=== PATIENT | male | born 1980 | race Caucasian/White ===

== ENCOUNTER 2016-10-16 19:19 | Emergency (ER) | payer BC ==
[~2016-10-16] VITALS: Ht 177.8 cm; Wt 90.7 kg
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
--- OUTSIDE RECORDS SUMMARY | 2016-10-16 19:23 | XMS REPORT | Referral Summary ---
Author Author [facility] Organization [facility] Address Unknown Phone Unavailable Care Team Providers Care Overedge Sewer Name Role Phone Kevin Caceres Primary Care Physician [phone] Encounter [facility] Date(s): 01/18/15 - 01/18/[address] [facility] [address], [place] [address] Final: ANAL OR RECTAL PAIN Final: ABDOMINAL PAIN, UNSPECIFIED SITE Final: OTHER SYMPTOMS INVOLVING DIGESTIVE SYSTEM Discharge Disposition: Without Being Seen Attending Physician: Compa Ospina MD Vital Signs Most recent to 1 oldest [Reference Range]: Temperature Oral 37 degC [35.8-37.3 degC] (01/18/15 12:37 AM) Peripheral Pulse 72 bpm Rate [60-100 bpm] (01/18/15 12:37 AM) Respiratory Rate 16 br/min [14-20 br/min] (01/18/15 12:37 AM) Blood Pressure 143/83 mmHg [90-140/60-90 mmHg] *HI* (01/18/15 12:37 AM) SpO2 97 % (01/18/15 12:37 AM) Problem List Condition Effective Dates Status [...] Active penicillin Unknown Unknown Active uNspecfied Medications [place] 5 mg-325 mg oral tablet 2 tabs, [...]
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
--- OUTSIDE RECORDS SUMMARY | 2016-10-16 19:23 | XMS REPORT ---
Demographics Preferred Language Unknown Marital Status Unknown Gnosticism Affiliation Unknown Race White Ethnic Group Not or Author Tyson Franco Organization [employer] Address Unknown Phone Unavailable Care Team Providers Care Applications Analyst Name Role Phone Tyson Caceres CP Unavailable Allergies No Known Allergies Problems No Known Problems Medications No Known Medications Results No Known Results Summary Purpose [employer] Submission
--- OUTSIDE RECORDS SUMMARY | 2016-10-16 19:23 | XMS REPORT ---
Author Author Tyson Caceres Organization [employer] Address Unknown Phone Unavailable Care Team Providers Care Pumper Gager Apprentice Name Role Phone Tyson Caceres CP Unavailable Allergies, Adverse Reactions, Alerts Substance Reaction Event Type penicillin Info Not Available Drug Allergy Problems Problem Type Condition Code Onset Dates Condition Status Assessment Hemorrhoids NOS 455.6 Active Assessment Kidney stone 592.0 Active Assessment Cholelithiasis NOS 574.20 Active Assessment Abdominal pain, epigastric 789.06 Active Assessment Tobacco use disorder 305.1 Active Assessment Screening Lipids V77.91 Active Medications Medication Code System Code Instructions Start Date End Date Status Dosage Chantix Maintenance NDC 82531 1 mg orally BID January 19, 2015 1 tablet Chantix NDC 05833 0.5 mg orally 2 times a day January 19, 2015 1 tab(s) Procedures Procedure Coding System Code Date Office New Level 3 CPT-4 42933 January 19, 2015 Lipase CPT-4 39216 January 19, 2015 Comp Metabolic Panel CPT-4 78677 January 19, 2015 Amylase CPT-4 96086 January 19, 2015 T4 Free CPT-4 90185 January 19, 2015 Microalbumin Urine CPT-4 66735 January 19, 2015 TSH CPT-4 62972 January 19, 2015 Urinalysis WO Micro CPT-4 03985 January 19, 2015 Lipid Panel CPT-4 25098 January 19, 2015 Creatine Urine CPT-4 27938 January 19, 2015 CBC with Differential WBC CPT-4 34225 January 19, 2015 Vital Signs Date/Time: January 19, 2015 BMI 28.98 Index Height 70 in Weight 202.0 lbs Blood Pressure Systolic 122 mm Hg Cardiac Monitoring Heart Rate 72 /min Respiratory Rate 16 /min Temperature 98.1 F Blood Pressure Diastolic 75 mm Hg Results No Known Results Summary Purpose [employer] Submission
--- OUTSIDE RECORDS SUMMARY | 2016-10-16 19:23 | XMS REPORT | Referral Summary ---
Author Author [facility] Organization [facility] Address Unknown Phone Unavailable Care Team Providers Care Pressure Tester Name Role Phone Kevin Caceres Primary Care Physician [phone] Encounter VC Date(s): 10/23/15 - 10/23/15 [facility] [address], [place] [address] Discharge Disposition: Attending Physician: Armando Cannon MD Admitting Physician: Armando Cannon MD Vital Signs Most recent to 1 oldest [Reference Range]: Temperature Oral 36.8 degC [35.8-37.3 degC] (10/23/15 3:40 AM) Peripheral Pulse 70 bpm Rate [60-100 bpm] (10/23/15 3:40 AM) Respiratory Rate 18 br/min [14-20 br/min] (10/23/15 3:40 AM) Blood Pressure 161/102 mmHg [90-140/60-90 mmHg] *HI* (10/23/15 3:40 AM) SpO2 98 % (10/23/15 3:40 AM) Problem List Condition Effective Dates Status [...] Active penicillin Unknown Unknown Active uNspecfied Medications [place] 5 mg-325 mg oral tablet 2 tabs, [...]
--- OUTSIDE RECORDS SUMMARY | 2016-10-16 19:23 | XMS REPORT | Referral Summary ---
Author Author [facility] Organization [facility] Address Unknown Phone Unavailable Care Team Providers Care Poultry Pinner Name Role Phone Kevin Caceres Primary Care Physician [phone] Encounter VC Date(s): 04/05/16 - 04/05/16 [facility] [place] [address] Discharge Diagnosis: Left shoulder pain Discharge Disposition: 01-Home or Self Care Attending Physician: Humphrey Ramirez MD Admitting Physician: Humphrey Ramirez MD Vital Signs Most recent to 1 oldest [Reference Range]: Temperature Tympanic 36.9 degC [36.6-38.1 degC] (04/05/16 2:10 PM) Peripheral Pulse 80 bpm Rate [60-100 bpm] (04/05/16 2:10 PM) Blood Pressure 124/78 mmHg [90-140/60-90 mmHg] (04/05/16 2:10 PM) Problem List Condition Effective Dates Status Health [...] (hives) Active penicillin Unknown Unknown Active uNspecfied shellfish1 Active 1SHELLFISH Medications EpiPen 2-Saeed 0.3 mg injectable kit 0.3 mg, IntraMuscular, Once, # 2 syringes, 0 Refill(s) Start Date: 02/04/16 Status: Ordered naproxen 500 mg oral tablet 500 mg 1 tabs, Oral, BID, # 60 tabs, 0 Refill(s), Pharmacy: [id number], 1 tabs Oral BID Start Date: 04/05/16 Status: Ordered Results No data available for [...] Number of years: 18 Assessment and Plan Extracted from: Title: Office Visit Note Author: Humphrey Ramirez MD Date: 04/05/16 Assessment/Plan 1.Left shoulder pain X-ray appears normal. I think he has a rotator cuff strain. I've recommendedrestrictions including no use of the left arm above 90and no lifting over 20 pounds. Recheck in 2 weeks. We'll also startnaproxen 500 mg twice daily regularly for the next 2 weeks. He's take this with food. If symptoms worsen or further problems develop he'll let us now again we'll recheck him in 2 weeks. Ordered: Office Visit Level 3 Est 43308 XR Shoulder Complete Left
--- OUTSIDE RECORDS SUMMARY | 2016-10-16 19:23 | XMS REPORT | Referral Summary ---
Author Author [facility] Organization [facility] Address Unknown Phone Unavailable Care Team Providers Care Vice President [employer] Name Role Phone Kevin Caceres Primary Care Physician [phone] Encounter VC Date(s): 01/29/15 - 01/29/15 [facility] [address] [place], [place] [address] Final: ABDOMINAL PAIN, LEFT UPPER QUADRANT Final: Other acute postoperative pain Final: OTHER ACQUIRED ABSENCE OF ORGAN Final: TOBACCO USE DISORDER Discharge Diagnosis: Post-operative pain Discharge Diagnosis: Post-op pain Discharge Diagnosis: Acute abdominal pain Discharge Diagnosis: Abdominal pain Discharge Disposition: -Home or Self Care Attending Physician: Humphrey Yeung MD Admitting Physician: Humphrey Yeung MD Vital Signs Most recent to 1 oldest [Reference Range]: Temperature Oral 37.0 degC [35.8-37.3 degC] (01/29/15 2:45 AM) Peripheral Pulse 72 bpm Rate [60-100 bpm] (01/29/15 3:20 AM) Heart Rate Monitored 60 bpm [60-100 bpm] (01/29/15 6:25 AM) Respiratory Rate 16 br/min [14-20 br/min] (01/29/15 6:25 AM) Blood Pressure 140/100 mmHg [90-140/60-90 mmHg] (01/29/15 6:25 AM) Mean Arterial 104 mmHg Pressure, Cuff (01/29/15 5:59 AM) SpO2 95 % (01/29/15 6:25 AM) Problem List Condition Effective Dates Status [...] Active penicillin Unknown Unknown Active uNspecfied Medications [place] 5 mg-325 mg oral tablet 2 tabs, Oral, q4hr, Pain, 0 Refill(s) Start Date: 01/28/15 Status: Ordered Zofran 4 mg oral tablet 4 mg 1 tabs, Oral, q6hr, Nausea or Vomiting, 0 Refill(s) Start Date: 01/28/15 Status: Ordered Results Hematology Most recent to 1 oldest [Reference Range]: WBC [4.8-10.8 13.6 10*3/uL 10*3/uL] *HI* (01/29/15 3:43 AM) RBC [4.60-6.20 5.17 10*6/uL 10*6/uL] (01/29/15 3:43 AM) Hgb [14.0-18.0 15.3 gm/dL gm/dL] (01/29/15 3:43 AM) Hct [42.0-52.0 %] 43.4 % (01/29/15 3:43 AM) MCV [82.0-99.0 fL] 83.9 fL (01/29/15 3:43 AM) MCH [27.0-32.0 pg] 29.6 pg (01/29/15 3:43 AM) MCHC [32.0-36.0 35.3 gm/dL gm/dL] (01/29/15 3:43 AM) RDW [11.5-14.5 %] 13.3 % (01/29/15 3:43 AM) Platelet [150-400 272 10*3/uL 10*3/uL] (01/29/15 3:43 AM) MPV [9.4-12.3 fL] 10.8 fL (01/29/15 3:43 AM) Immature 0.1 % Granulocytes (01/29/15 3:43 AM) [0.0-1.0 %] Neutrophils [51-75 86 % %] *HI* (01/29/15 3:43 AM) Lymphocytes [20-46 8 % %] *LOW* (01/29/15 3:43 AM) Monocytes [4-11 %] 5 % (01/29/15 3:43 AM) Eosinophils [0-4 %] 0 % (01/29/15 3:43 AM) Basophils [0-2 %] 0 % (01/29/15 3:43 AM) Neutro Absolute 11.76 10*3 [1.90-7.00 10*3] *HI* (01/29/15 3:43 AM) Lymph Absolute 1.14 10*3 [0.80-3.30 10*3] (01/29/15 3:43 AM) [place] Absolute 0.70 10*3 [0.30-1.00 10*3] (01/29/15 3:43 AM) Eos Absolute 0.01 10*3 [0.00-0.50 10*3] (01/29/15 3:43 AM) Baso Absolute 0.01 10*3 [0.00-0.20 10*3] (01/29/15 3:43 AM) Chemistry Most recent to 1 oldest [Reference Range]: Sodium Lvl [136-144 138 mEq/L mEq/L] (01/29/15 3:43 AM) Potassium Lvl 3.8 mEq/L [3.6-5.1 mEq/L] (01/29/15 3:43 AM) Chloride [99-109 104 mEq/L mEq/L] (01/29/15 3:43 AM) CO2 [22-32 mEq/L] 23 mEq/L (01/29/15 3:43 AM) AGAP [3-20] 11 (01/29/15 3:43 AM) BUN [4-20 mg/dL] 9 mg/dL (01/29/15 3:43 AM) Glucose Lvl [70-100 137 mg/dL mg/dL] *HI* (01/29/15 3:43 AM) Creatinine Lvl 0.88 mg/dL [0.64-1.27 mg/dL] (01/29/15 3:43 AM) eGFR [>60] >60 1 (01/29/15 3:43 AM) Calcium Lvl 9.3 mg/dL [8.6-10.0 mg/dL] (01/29/15 3:43 AM) Albumin Lvl [3.5-4.8 3.8 gm/dL gm/dL] (01/29/15 3:43 AM) Total Protein 6.6 gm/dL [6.1-7.9 gm/dL] (01/29/15 3:43 AM) Globulin [1.9-4.3 2.8 gm/dL gm/dL] (01/29/15 3:43 AM) ALT [17-63 U/L] 36 U/L (01/29/15 3:43 AM) AST [15-41 U/L] 27 U/L (01/29/15 3:43 AM) Alk Phos [26-104 72 U/L U/L] (01/29/15 3:43 AM) Bili Total [0.2-1.2 0.6 mg/dL 2 mg/dL] (01/29/15 3:43 AM) Lipase Lvl [8-48 20 U/L U/L] (01/29/15 3:43 AM) Creatinine Venous 0.9 mg/dL [0.7-1.2 mg/dL] (01/29/15 4:00 AM) 1Result Comment: Multiply eGFR results by 1.21 for race. 2Result Comment: Naproxen, specifically the metabolite O-desmethylnaproxen, may cause spurious elevation in Total Bilirubin levels. Urinalysis Most recent to 1 oldest [Reference Range]: UA Color Lt Yellow (01/29/15 3:44 AM) UA Appear Clear (01/29/15 3:44 AM) UA pH [5.0-8.0] 7.0 (01/29/15 3:44 AM) UA Leuk Est Negative [Negative] (01/29/15 3:44 AM) UA Nitrite Negative [Negative] (01/29/15 3:44 AM) UA Protein Negative [Negative] (01/29/15 3:44 AM) UA Glucose Negative [Negative] (01/29/15 3:44 AM) UA Ketones Negative [Negative] (01/29/15 3:44 AM) UA Urobilinogen Negative [<1.0] (01/29/15 3:44 AM) UA Bili [Negative] Negative (01/29/15 3:44 AM) UA Blood [Negative] Negative (01/29/15 3:44 AM) UA Spec Grav 1.008 [1.003-1.030] (01/29/15 3:44 AM) Type Clean Catch (01/29/15 3:44 AM) Immunizations Vaccine Date Refusal Reason influenza virus [...]
--- OUTSIDE RECORDS SUMMARY | 2016-10-16 19:23 | XMS REPORT | Referral Summary ---
Author Author [facility] Organization [facility] Address Unknown Phone Unavailable Care Team Providers Care Senior Clinical Data Analyst Name Role Phone Kevin Caceres Primary Care Physician [phone] Encounter VC [facility] [id number] Date(s): 02/04/16 - 02/04/16 [facility] [address], [place] [id number] [place] [address] Discharge Diagnosis: Insect sting allergy, current reaction Discharge Disposition: 01-Home or Self Care Attending Physician: Chad Lamas DO Admitting Physician: Chad Lamas DO Vital Signs Most recent to 1 oldest [Reference Range]: Temperature Oral 37.1 degC [35.8-37.3 degC] (02/04/16 11:58 AM) Peripheral Pulse 91 bpm Rate [60-100 bpm] (02/04/16 11:58 AM) Heart Rate Monitored 66 bpm [60-100 bpm] (02/04/16 1:00 PM) Respiratory Rate 12 br/min [14-20 br/min] *LOW* (02/04/16 11:58 AM) Blood Pressure 111/63 mmHg [90-140/60-90 mmHg] (02/04/16 1:00 PM) Mean Arterial 75 mmHg Pressure, Cuff (02/04/16 1:00 PM) SpO2 95 % (02/04/16 1:30 PM) Problem List Condition Effective Dates Status [...] Active penicillin Unknown Unknown Active uNspecfied Medications EpiPen 2-Saeed 0.3 mg injectable kit 0.3 mg, IntraMuscular, Once, # 2 syringes, 0 Refill(s) Start Date: 02/04/16 Status: Ordered [place] 5 mg-325 mg oral tablet 2 tabs, Oral, q4hr, Pain, 0 Refill(s) Start Date: 01/28/15 Status: Ordered predniSONE 50 mg oral tablet 50 mg 1 tabs, Oral, Daily, X 4 days, # 4 tabs, 0 Refill(s) Start Date: 02/04/16 Stop Date: 02/08/16 Status: Ordered Zithromax Z-Saeed 250 mg oral tablet 1 packets, Oral, Once, as directed on package labeling, # 6 tabs, 0 Refill(s) Start Date: 01/30/16 Status: Ordered Zofran 4 mg oral tablet [...]
--- OUTSIDE RECORDS SUMMARY | 2016-10-16 19:23 | XMS REPORT | Referral Summary ---
Author Author [facility] Organization [facility] Address Unknown Phone Unavailable Care Team Providers Care Mid Level Practitioner Name Role Phone Kevin Caceres Primary Care Physician [phone] Encounter VC Date(s): 01/24/15 - 01/24/15 [facility] [address] [place] [address] NT Final: ABDOMINAL PAIN, RIGHT UPPER QUADRANT Discharge Disposition: 01-Home or Self Care Attending Physician: Ace Nelson MD Vital Signs No data available for this section Problem List Condition Effective Dates Status Health [...] Active penicillin Unknown Unknown Active uNspecfied Medications [place] 5 mg-325 mg oral tablet 2 tabs, [...]
--- OUTSIDE RECORDS SUMMARY | 2016-10-16 19:23 | XMS REPORT | Referral Summary ---
Author Author [facility] Organization [facility] Address Unknown Phone Unavailable Care Team Providers Care Airframe And Powerplant Mechanic Name Role Phone No PCP, Pt States Primary Care Physician [phone] Encounter VC Date(s): 01/30/16 - 01/30/16 [facility] [address], [place] [id number] [place] [address] Discharge Diagnosis: Weakness Discharge Diagnosis: Malaise Discharge Diagnosis: Congested Discharge Diagnosis: Cough Discharge Diagnosis: PNA (pneumonia) Discharge Disposition: 01-Home or Self Care Attending Physician: Aruna Boyer MD Admitting Physician: Aruna Boyer MD Vital Signs Most recent to 1 oldest [Reference Range]: Temperature Oral 37.1 degC [35.8-37.3 degC] (01/30/16 1:41 AM) Peripheral Pulse 62 bpm Rate [60-100 bpm] (01/30/16 5:58 AM) Heart Rate Monitored 62 bpm [60-100 bpm] (01/30/16 5:30 AM) Respiratory Rate 16 br/min [14-20 br/min] (01/30/16 5:58 AM) Blood Pressure 123/83 mmHg [90-140/60-90 mmHg] (01/30/16 5:58 AM) Mean Arterial 98 mmHg Pressure, Cuff (01/30/16 5:30 AM) SpO2 100 % (01/30/16 5:58 AM) Problem List Condition Effective Dates Status [...] Active penicillin Unknown Unknown Active uNspecfied Medications [place] 5 mg-325 mg oral tablet 2 tabs, Oral, q4hr, Pain, 0 Refill(s) Start Date: 01/28/15 Status: Ordered Tussionex PennKinetic 10 mg-8 mg/5 mL oral suspension, extended release 5 mL, Oral, q12hr, as needed for cough, X 3 days, # 30 mL, 0 Refill(s) Start Date: 01/30/16 Stop Date: 02/02/16 Status: Ordered Zithromax Z-Saeed 250 mg oral tablet 1 packets, Oral, Once, as directed on package labeling, # 6 tabs, 0 Refill(s) Start Date: 01/30/16 Status: Ordered Zofran 4 mg oral tablet 4 mg 1 tabs, Oral, q6hr, Nausea or Vomiting, 0 Refill(s) Start Date: 01/28/15 Status: Ordered Results Hematology Most recent to 1 oldest [Reference Range]: WBC [4.8-10.8 11.9 10*3/uL 10*3/uL] *HI* (01/30/16 2:18 AM) RBC [4.60-6.20] 5.03 (01/30/16 2:18 AM) Hgb [14.0-18.0 15.5 gm/dL gm/dL] (01/30/16 2:18 AM) Hct [42.0-52.0 %] 43.8 % (01/30/16 2:18 AM) MCV [82.0-99.0 fL] 87.1 fL (01/30/16 2:18 AM) MCH [27.0-32.0 pg] 30.8 pg (01/30/16 2:18 AM) MCHC [32.0-36.0 35.4 gm/dL gm/dL] (01/30/16 2:18 AM) RDW [11.5-14.5 %] 14.1 % (01/30/16 2:18 AM) Platelet [150-400 270 10*3/uL 10*3/uL] (01/30/16 2:18 AM) MPV [9.4-12.3 fL] 10.6 fL (01/30/16 2:18 AM) Immature 0.4 % Granulocytes (01/30/16 2:18 AM) [0.0-1.0 %] Neutrophils [51-75 70 % %] (01/30/16 2:18 AM) Lymphocytes [20-46 23 % %] (01/30/16 2:18 AM) Monocytes [4-11 %] 4 % (01/30/16 2:18 AM) Eosinophils [0-4 %] 3 % (01/30/16:18 AM) Basophils [0-2 %] 0 % (01/30/16 2:18 AM) Neutro Absolute 8.28 10*3 [1.90-7.00 10*3] *HI* (01/30/16 2:18 AM) Lymph Absolute 2.71 10*3 [0.80-3.30 10*3] (01/30/16 2:18 AM) [place] Absolute 0.52 10*3 [0.30-1.00 10*3] (01/30/16 2:18 AM) Eos Absolute 0.31 10*3 [0.00-0.50 10*3] (01/30/16 2:18 AM) Baso Absolute 0.04 10*3 [0.00-0.20 10*3] (01/30/16 2:18 AM) Nucleated RBC 0.0 /100 WBC Automated [0 /100 (01/30/16 2:18 AM) WBC] Coagulation Most recent to 1 oldest [Reference Range]: D-Dimer [0-600 1186 ng{FEU}/mL 1 ng{FEU}/mL] *HI* (01/30/16 2:18 AM) 1Result Comment: A D Dimer result of <500 ng/mL FEU has a negative predictive value of approximately 100% for the exclusion of DVT and acute PE. Chemistry Most recent to 1 oldest [Reference Range]: Sodium Lvl [136-144 136 mEq/L mEq/L] (01/30/16 2:18 AM) Potassium Lvl 3.8 mEq/L 1 [3.6-5.1 mEq/L] (01/30/16 2:18 AM) Chloride [99-109 105 mEq/L mEq/L] (01/30/16:18 AM) CO2 [22-32 mEq/L] 24 mEq/L (01/30/16 2:18 AM) AGAP [3-20] 7 (01/30/16:18 AM) BUN [4-20 mg/dL] 11 mg/dL (01/30/16:18 AM) Glucose Lvl [70-100 128 mg/dL mg/dL] *HI* (01/30/16 2:18 AM) Creatinine Lvl 0.90 mg/dL [0.64-1.27 mg/dL] (01/30/16:18 AM) eGFR [>60] >60 2 (01/30/16 2:18 AM) Calcium Lvl 8.6 mg/dL [8.6-10.0 mg/dL] (01/30/16:18 AM) Albumin Lvl [3.5-4.8 3.5 gm/dL gm/dL] (01/30/16 2:18 AM) Total Protein 6.1 gm/dL [6.1-7.9 gm/dL] (01/30/16:18 AM) Globulin [1.9-4.3 2.6 gm/dL gm/dL] (01/30/16 2:18 AM) ALT [17-63 U/L] 34 U/L (01/30/16 2:18 AM) AST [15-41 U/L] 32 U/L (01/30/16 2:18 AM) Alk Phos [26-104 95 U/L U/L] (01/30/16 2:18 AM) Bili Total [0.2-1.2 0.4 mg/dL 3 mg/dL] (01/30/16:18 AM) BNP [0-99 pg/mL] 61 pg/mL (01/30/16 2:18 AM) 1Result Comment: Hemolyzed specimen. The following tests may be affected: ALT, AST, Ammonia, Iron, Potassium, LDH, Amylase, CPK, and Total Bilirubin. 2Result Comment: Multiply eGFR results by 1.21 for race. 3Result Comment: Naproxen, specifically the metabolite O-desmethylnaproxen, may cause spurious elevation in Total Bilirubin levels. Toxicology Most recent to 1 oldest [Reference Range]: U Amphetamine Scrn Negative (01/30/16 2:18 AM) U Cocaine Scrn Negative (01/30/16 2:18 AM) U Cannab Scrn Negative (01/30/16 2:18 AM) U Opiate Scrn Negative (01/30/16 2:18 AM) U PCP Scrn Negative (01/30/16 2:18 AM) U Benzodiazepine Negative Scrn (01/30/16 2:18 AM) U Barbiturate Scrn Negative (01/30/16 2:18 AM) Methadone Lvl Negative (01/30/16 2:18 AM) Tricyclics Negative 1 (01/30/16 2:18 AM) 1Result Comment: Cut-off concentrations: Amphetamines: 1000 ng/mL Cocaine: 300 ng/mL Cannabinoid: 50 ng/mL Opiate: 300 ng/mL Phencyclidine (PCP): 25 ng/mL Benzodiazepine: 200 ng/mL Barbiturate: 200 ng/mL Methadone: 300 ng/mL Tricyclic: 300 ng/mL The urine drug screen assays are qualitative screens. A more specific GC/MS method must be performed to obtain a confirmed analytical result. Unconfirmed screening results must not be used for non-medical purposes(e.g. employment or legal testing) Immunizations Vaccine Date Refusal Reason influenza virus [...]
--- OUTSIDE RECORDS SUMMARY | 2016-10-16 19:23 | XMS REPORT | Referral Summary ---
Author Author [facility] Organization [facility] Address Unknown Phone Unavailable Care Team Providers Care Pharmacists Name Role Phone No PCP, Pt States Primary Care Physician [phone] Encounter VC Date(s): 11/16/15 - 11/16/15 [facility] [address] [place] [address]- [place] Discharge Diagnosis: Knee sprain Discharge Diagnosis: Ankle sprain Discharge Disposition: 01-Home or Self Care Attending Physician: Armando Cannon MD Admitting Physician: Armando Cannon MD Vital Signs Most recent to 1 oldest [Reference Range]: Temperature Oral 36.8 degC [35.8-37.3 degC] (11/16/15 9:04 PM) Peripheral Pulse 66 bpm Rate [60-100 bpm] (11/16/15 9:04 PM) Respiratory Rate 16 br/min [14-20 br/min] (11/16/15 7:36 PM) Blood Pressure 123/79 mmHg [90-140/60-90 mmHg] (11/16/15 9:04 PM) SpO2 99 % (11/16/15 9:04 PM) Problem List Condition Effective Dates Status [...] Active penicillin Unknown Unknown Active uNspecfied Medications [place] 5 mg-325 mg oral tablet 2 tabs, [...]
--- OUTSIDE RECORDS SUMMARY | 2016-10-16 19:23 | XMS REPORT | Referral Summary ---
Author Author [facility] Organization [facility] Address Unknown Phone Unavailable Care Team Providers Care Chemical Lab Supervisor Name Role Phone Kevin Caceres Primary Care Physician [phone] Encounter VC Date(s): 05/02/16 - 05/02/16 [facility] [address] [place] [address] [place] Discharge Diagnosis: Left shoulder strain Discharge Disposition: 01-Home or Self Care Attending Physician: Humphrey Ramirez MD Admitting Physician: Humphrey Ramirez MD Vital Signs Most recent to 1 oldest [Reference Range]: Temperature Tympanic 35.8 degC [36.6-38.1 degC] *LOW* (05/02/16 11:29 AM) Peripheral Pulse 76 bpm Rate [60-100 bpm] (05/02/16 11:29 AM) Respiratory Rate 16 br/min [14-20 br/min] (05/02/16 11:29 AM) Blood Pressure 116/72 mmHg [90-140/60-90 mmHg] (05/02/16 11:29 AM) Problem List Condition Effective Dates Status [...] 0 Refill(s) Start Date: 02/04/16 Status: Ordered Results No data available for [...] Visit Note Author: Humphrey Ramirez MD Date: 05/02/16 Assessment/Plan 1.Left shoulder strain Overall he's had significant improvement. I don' t think physical therapy would be helpful at this point with him being pain- free. Because of some popping and grinding it is still experiencing I've recommended a recheck in 2 weeks. I'm going to allow him to return without restrictionsince he is pain-free and functionally is normal. If he has worsening pain or further problems he'll let us now. Ordered: Office Visit Level 3 Est [id number]
--- OUTSIDE RECORDS SUMMARY | 2016-10-16 19:23 | XMS REPORT | Referral Summary ---
Author Author [facility] Organization [facility] Address Unknown Phone Unavailable Care Team Providers Care Machine Milker Name Role Phone Michel Ramirez Primary Care Physician [phone] Encounter VC Date(s): 05/15/16 - 05/15/16 [facility] [address] [place] [address] [place] Discharge Diagnosis: Left shoulder strain Discharge Disposition: 01-Home or Self Care Attending Physician: Humphrey Ramirez MD Admitting Physician: Humphrey Ramirez MD Vital Signs Most recent to 1 oldest [Reference Range]: Temperature Tympanic 36.1 degC [36.6-38.1 degC] *LOW* (05/15/16 11:34 AM) Peripheral Pulse 88 bpm Rate [60-100 bpm] (05/15/16 11:34 AM) Respiratory Rate 16 br/min [14-20 br/min] (05/15/16 11:34 AM) Blood Pressure 18/74 mmHg [90-140/60-90 mmHg] *LOW* (05/15/16 11:34 AM) Problem List Condition Effective Dates Status [...] Visit Note Author: Humphrey Ramirez MD Date: 05/15/16 Assessment/Plan 1.Left shoulder strain I've recommended released to full activity with no further follow-up. No further interventions needed. If he runs into troubles or difficulties I would beglad to see him back.
--- OUTSIDE RECORDS SUMMARY | 2016-10-16 19:23 | XMS REPORT | Referral Summary ---
Author Author [facility] Organization [facility] Address Unknown Phone Unavailable Care Team Providers Care Supervisor Boiler Repair Name Role Phone Kevin Caceres Primary Care Physician [phone] Encounter VC Date(s): 02/15/15 - 02/15/15 [facility] [address] [place] [address] [phone] Final: SYNCOPE AND COLLAPSE Final: DIZZINESS AND GIDDINESS Final: TOBACCO USE DISORDER Discharge Diagnosis: Vertigo Discharge Diagnosis: Syncope Discharge Disposition: 01-Home or Self Care Attending Physician: Ethan Fregoso MD Admitting Physician: Ethan Fregoso MD Vital Signs Most recent to 1 oldest [Reference Range]: Temperature Oral 37 degC [35.8-37.3 degC] (02/15/15 2:04 PM) Peripheral Pulse 58 bpm Rate [60-100 bpm] *LOW* (02/15/15 6:51 PM) Heart Rate Monitored 60 bpm [60-100 bpm] (02/15/15 5:55 PM) Respiratory Rate 18 br/min [14-20 br/min] (02/15/15 6:51 PM) Blood Pressure 129/80 mmHg [90-140/60-90 mmHg] (02/15/15 6:51 PM) Mean Arterial 66 mmHg Pressure, Cuff (02/15/15 5:55 PM) SpO2 100 % (02/15/15 6:51 PM) Problem List Condition Effective Dates Status [...] Active penicillin Unknown Unknown Active uNspecfied Medications [place] 5 mg-325 mg oral tablet 2 tabs, Oral, q4hr, Pain, 0 Refill(s) Start Date: 01/28/15 Status: Ordered Zofran 4 mg oral tablet 4 mg 1 tabs, Oral, q6hr, Nausea or Vomiting, 0 Refill(s) Start Date: 01/28/15 Status: Ordered Results Chemistry Most recent to 1 oldest [Reference Range]: Sodium Venous 141 mEq/L [136-144 mEq/L] (02/15/15 2:22 PM) Potassium Venous 3.7 mEq/L 1 [3.6-5.1 mEq/L] (02/15/15 2:22 PM) Calcium Ionized 1.02 mmol/L Venous [1.19-1.41 *LOW* mmol/L] (02/15/15 2:22 PM) Total CO2 Venous 18 mEq/L [25-29 mEq/L] *LOW* (02/15/15 2:22 PM) HGB Venous NPT 15.6 gm/dL [14.0-16.0 gm/dL] (02/15/15 2:22 PM) HCT Venous 46.0 % [42.0-52.0 %] (02/15/15 2:22 PM) Glucose Venous 157 mg/dL [70-100 mg/dL] *HI* (02/15/15 2:22 PM) BUN Venous [4-20] 9 (02/15/15 2:22 PM) Creatinine Venous 0.9 mg/dL [0.7-1.2 mg/dL] (02/15/15 2:22 PM) Venous CL [99-109 111 mEq/L mEq/L] *HI* (02/15/15 2:22 PM) Anion Gap, Neil 12 [3-20] (02/15/15 2:22 PM) 1Result Comment: This test was performed on a whole blood specimen. The presence or absence of hemolysis cannot be assessed. Hemolysis can falsely elevate potassium levels. Normals are for venous specimens only. Immunizations Vaccine Date Refusal Reason influenza virus [...]
--- OUTSIDE RECORDS SUMMARY | 2016-10-16 19:24 | XMS REPORT | Referral Summary ---
Author Author [facility] Organization [facility] Address Unknown Phone Unavailable Care Team Providers Care Dynamo Repairer Name Role Phone Kevin Caceres Primary Care Physician [phone] Encounter VC Date(s): 01/11/15 - 01/11/15 [facility] [address] [place], [place] [address] Final: NAUSEA WITH VOMITING Final: DIARRHEA Final: ABDOMINAL PAIN, UNSPECIFIED SITE Discharge Disposition: Without Being Seen Attending Physician: Compa Ospina MD Vital Signs Most recent to 1 oldest [Reference Range]: Temperature Oral 37.0 degC [35.8-37.3 degC] (01/11/15 10:20 PM) Peripheral Pulse 78 bpm Rate [60-100 bpm] (01/11/15 10:20 PM) Respiratory Rate 16 br/min [14-20 br/min] (01/11/15 10:20 PM) Blood Pressure 133/86 mmHg [90-140/60-90 mmHg] (01/11/15 10:20 PM) SpO2 97 % (01/11/15 10:20 PM) Problem List Condition Effective Dates Status [...] Active penicillin Unknown Unknown Active uNspecfied Medications [place] 5 mg-325 mg oral tablet 2 tabs, [...]
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
--- OUTSIDE RECORDS SUMMARY | 2016-10-16 19:24 | XMS REPORT | Referral Summary ---
Author Author [facility] Organization [facility] Address Unknown Phone Unavailable Care Team Providers Care Revenue Accounting Manager Name Role Phone Kevin Caceres Primary Care Physician [phone] Encounter VC Date(s): 04/19/16 - 04/19/16 [facility] [address] [place] [address] [place] Discharge Diagnosis: Left shoulder pain Discharge Disposition: 01-Home or Self Care Attending Physician: Humphrey Ramirez MD Admitting Physician: Humphrey Ramirez MD Vital Signs Most recent to 1 oldest [Reference Range]: Temperature Tympanic 35.8 degC [36.6-38.1 degC] *LOW* (04/19/16 9:19 AM) Peripheral Pulse 76 bpm Rate [60-100 bpm] (04/19/16 9:19 AM) Respiratory Rate 14 br/min [14-20 br/min] (04/19/16 9:19 AM) Blood Pressure 114/80 mmHg [90-140/60-90 mmHg] (04/19/16 9:19 AM) Problem List Condition Effective Dates Status [...] Visit Note Author: Humphrey Ramirez MD Date: 04/19/16 Assessment/Plan 1.Left shoulder pain I recommended continuing naproxenand current restrictions for another 2 weeks with a recheck then. I've recommended adding physical therapy and will suprapubic get that approved through Work[employer]'s Comp. Recheck 2 weeks as mentioned above. Ordered: Office Visit Level 3 Est 72216
--- OUTSIDE RECORDS SUMMARY | 2016-10-16 19:24 | XMS REPORT | Referral Summary ---
Author Author [facility] Organization [facility] Address Unknown Phone Unavailable Care Team Providers Care Regional Vice President Life Sales Name Role Phone Kevin Caceres Primary Care Physician [phone] Encounter VC Date(s): 01/28/15 - 01/28/15 [facility] [address], [place] [address] Final: CALCULUS OF GALLBLADDER WITH OTHER CHOLECYSTITIS, WITHOUT MENTION OF OBSTRUCTION Final: TOBACCO USE DISORDER Discharge Diagnosis: Biliary dyskinesia Discharge Disposition: 01-Home or Self Care Attending Physician: Ace Nelson MD Admitting Physician: Ace Nelson MD Vital Signs Most recent to 1 oldest [Reference Range]: Temperature Temporal 37.0 degC Artery [36.3-37.8 (01/28/15 3:26 PM) degC] Apical Heart Rate 66 bpm [60-100 bpm] (01/28/15 10:20 AM) Heart Rate Monitored 46 bpm [60-100 bpm] *LOW* (01/28/15 4:45 PM) Respiratory Rate 14 br/min [14-20 br/min] (01/28/15 4:45 PM) Blood Pressure 150/89 mmHg [90-140/60-90 mmHg] *HI* (01/28/15 4:45 PM) Mean Arterial 109 mmHg Pressure, Cuff (01/28/15 4:45 PM) SpO2 96 % (01/28/15 4:45 PM) Problem List Condition Effective Dates Status [...] Active penicillin Unknown Unknown Active uNspecfied Medications [place] 5 mg-325 mg oral tablet 2 tabs, Oral, q4hr, Pain, 0 Refill(s) Start Date: 01/28/15 Status: Ordered Zofran 4 mg oral tablet 4 mg 1 tabs, Oral, q6hr, Nausea or Vomiting, 0 Refill(s) Start Date: 01/28/15 Status: Ordered Results Chemistry Most recent to 1 oldest [Reference Range]: Blood Glucose, 105 mg/dL Capillary [70-100 *HI* mg/dL] (01/28/15 10:20 AM) Immunizations Vaccine Date Refusal Reason influenza [...]
--- OUTSIDE RECORDS SUMMARY | 2016-10-16 19:24 | XMS REPORT ---
Author Author Tyson Caceres Organization [employer] Address Unknown Phone Unavailable Care Team Providers Care Catheter Builder Name Role Phone Tyson Caceres CP Unavailable Allergies No Known Allergies Problems No Known Problems Medications Medication Code System Code Instructions Start Date End Date Status Dosage Chantix Starter [facility] [address] 0.5mg-1.0mg PO BID January 20, 2015 1-2 as directed Results No Known Results Summary Purpose [employer] Submission
--- OUTSIDE RECORDS SUMMARY | 2016-10-16 19:33 | XMS REPORT | Continuity of Care Document ---
Author Author [facility] Organization [facility] Address Unknown Phone Unavailable Allergies Active Description [...] topical(Anusol-HC 2.5% rectal cream with applicator) 1 millie 201401/25/2015 Rectal 1 millie, Rectal, BID, for [...] IV Push, q5min, PRN: Other (See Comment) HYDROcodone-acetaminophen([place]ec[place] 5 mg-325 mg oral tablet) 2 tabs 01/28/2015 01/28/2015 Oral 2 tabs, Oral, q4hr, PRN: Pain Moderate (4-6) ondansetron(Zofran) 1 tabs 01/28/2015 01/28/2015 Oral 4 mg 4 mg=1 tabs, Oral, q6hr, PRN: Nausea or Vomiting metoclopramide(Reglan) 2 mL 01/28/2015 01/28/2015 IV Push 10 mg 10 mg=2 mL, IV Push, Once HYDROcodone-acetaminophen([place]ec[place] 5 mg-325 mg oral tablet) 2 tabs 01/28/2015 01/28/2015 Oral 2 tabs, Oral, q4hr, PRN: Pain Moderate (4-6) morphine(morphine) 2 mL 01/28/2015 01/28/2015 IV Push 4 mg 4 mg= 2 mL, IV Push, Once, PRN: Pain Severe (7-10) ondansetron(Zofran) 2 mL 01/28/2015 01/28/2015 IV Push 4 mg 4 mg= 2 mL, IV Push, q6hr HYDROcodone-acetaminophen(Cecil 5 mg-325 mg oral tablet) 2 tabs [...] MD External E927.0 ACC-OVEREXERT STREN MOVE 02/10/2013 iTmothy Justin MD 305.1 TOBACCO USE DISORDER 02/10/2013 [...] NEC 06/24/2013 Jaguar Guevara MD External 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 Visit Date/Time Discharge Status Pt. Type Provider Facility Loc./Unit Complaint [id number] 11/13/2013 16:02:00 2013 19:25:00 DIS Emergency Nhan BARR, [facility] [id number] 07/06/2013 23:00:00 2012 02:40:00 DIS Emergency Liam Boyer MD [facility] on [facility] [id number] 06/24/2013 01:22:00 2012 02:30:00 DIS Emergency Jaguar Guevara MD [facility] on [facility] [id number] 03/18/2013 05:30:00 2012 23:59:59 CLS Outpatient Arcenio Dockery MD [facility] on [facility] [id number] 03/06/2013 12:33:00 2012 13:40:00 DIS Emergency Ronan Swenson MD [facility] [id number] 02/10/2013 18:07:00 2012 19:04:00 DIS Emergency Nhan BARR [facility] [id number] 08/01/2012 14:30:00 2012 16:24:00 DIS Emergency Timothy Justin MD [facility] [id number] 07/22/2012 01:06:00 2012 02:37:00 DIS Emergency Bill Ellis MD [facility]
[2016-10-16 19:38] VITALS: Ht 177.8 cm; Wt 90.7 kg
[2016-10-16] MEDS ORDERED: NO ROUTINE MEDS (19:50)
--- NOTE | 2016-10-16 19:55 | ERPDOC ---
Departure Disposition Decision Date: Oct 16, 2016 Disposition Decision Time: 21:30 Disposition: 01 DISCHARGED HOME, SELF-CARE Impression Impression Impression: Primary Impression: Abdominal pain Abdominal location: generalized Qualified Codes: R10.84 - Generalized abdominal pain Severity: Moderate Condition: Stable Seen By: Mid-level only Patient Instructions: Abdominal Pain (ED) Problems/Meds/Labs Reviewed?: Yes Medications reviewed and manag: Yes Additional Instructions: Your labs today are normal and your CT does not show a stone. I do want you to take the Naproxen as needed for pain and follow up with your primary care provider for reevaluation if needed this week. Return to ER for severe pain or vomiting. Follow up care ordered?: Yes Mental Status: Alert, Oriented Scripts Naproxen (Naprosyn) 500 Mg Tablet 1 TAB PO BID, #20 TAB 0 Refills Prov: ROD STANLEY ROCIO 10/16/16 HPI - Male General Chief Complaint: Abdominal Pain Stated Complaint: POSS KIDNEY STONES Time Seen by Provider: 19:26 Source: patient Exam Limitations: no limitations HPI - Male Initial Comments For the last two days he has had some left flank pain and also some right flank pain today. He does have a history of kidney stones in the past with the last one being 8 years ago. He has not needed to see a urologist since then. He has started urinating blood and so decided to come to ER. Denies any nausea/ vomiting or fever/chills. Has not taken anything so far for pain as he does not like to take pills. Patient is laying on cart playing game on phone when I enter the room. Occurred At: home Onset: Gradual Duration: other (Over the last 2 days) Severity/Quality: sharpness Location: right flank, left flank Radiation: none Activities at Onset: none Prior Genitourinary Problems: none Associated Symptoms: abdominal pain (bilateral flanks), lower back pain, DENIES : diaphoresis, dysuria, fever/chills, loss of bladder control, lumps, mass, nausea/vomiting, nocturia, polyuria, swelling, syncope, urinary frequency Hx of Similar Symptoms: Yes Allergies: Coded Allergies: latex (Verified Allergy, Intermediate, 10/16/16) Penicillins (Verified Allergy, Unknown, 10/16/16) Past History Past Medical History Male: kidney stones Review of Systems Constitutional Constitutional: appetite decrease, DENIES: chills, dizziness, fatigue, fever, weakness Cardiovascular Cardiac: DENIES: chest pain, orthopnea Rhythm/Rate: DENIES: irregular beat, palpitations Vascular: DENIES: pedal edema, unilateral swelling Pulmonary Respiratory: DENIES: cough, dyspnea, sputum, tachypnea GI Upper Abdomen: DENIES: nausea, pain, vomiting Lower Abdomen: pain, DENIES: constipation, diarrhea General: hematuria, DENIES: burning, discharge, dysuria, frequency, urgency Integumentary Skin: DENIES: rash Neurological General: DENIES: headache, numbness, tingling, weakness Physical Exam General General Nourishment: well nourished, well developed, appears stated age, no acute distress, adult General Body Habitus: well groomed Vitals and Pain First Documented Vital Signs Date Time Temp Pulse Resp B/P Pulse Ox O2 Delivery O2 Flow Rate FiO2 10/16/16 19:38 97.9 57 16 131/78 99 Room Air Weight: Kilograms: 90.700 Height (feet): 5 Height (inches): 10.00 Triage Pain Scale: RN VS reviewed by Provider: Yes Normal Exams: Neck: Full range of motion, without adenopathy, JVD, bruits or thyromegaly Chest/Resp: Clear all calderon, with good airflow, and symmetry bilaterally CV: Regular rate and rhythm, without murmur or gallop, Pulses 2+ all extremities, capillary refill, <2 seconds all ext., no pedal edema noted Abdomen: Bowel sounds positive, soft, non-tender, non-distended, no hepatosplenomegaly, masses or bruits noted Lymphatic: No lymphadenopathy, or lymphedema noted Integumentary: No rashes, hives, or bruising noted Neurologic: Patient is alert, and oriented Psychiatric: Patient exhibits, appropriate attention, emotion and affect Abdomen (brief) Abdominal Brief: FOUND: other (No CVA tenderness) Differential Diagnoses Considering: Appendicitis, Hernia, Pyelonephritis, Renal Colic, Ureteral Stone , UTI Progress Results/Orders Orders Procedure Category Date Status Time Ct Renal W/O Contrast CT 10/16/16 Taken Cbc W/Auto LAB 10/16/16 Complete Diff-Reflex Manual Bmp - Basic Metabolic LAB 10/16/16 Complete Panel Iv Lock (Ed Only) EDM 10/16/16 Transmitted 19:48 Normal Saline (Normal PHA 10/16/16 Complete Saline Iv) 20:00 Ketorolac (Toradol) PHA 10/16/16 Complete 20:00 Ua, Dip Wreflex LAB 10/16/16 Complete Microsc & Workday Director 19:51 Lab Results Laboratory Tests Test 10/16/16 20:05 White Blood Count 6.6T/MM3 Red Blood Count 5.31M/MM3 Hemoglobin 15.5GM/DL Hematocrit 45.0% Mean Corpuscular Volume 84.7UM3 Mean Corpuscular Hemoglobin 29.2UUG Mean Corpuscular Hemoglobin Concent 34.4GM/DL RDW Standard Deviation 41.5FL Platelet Count 220T/MM3 Mean Platelet Volume 10.7UM3 Immature Granulocyte % (Auto) 0.3% Neutrophils (%) (Auto) 64.2% Lymphocytes (%) (Auto) 26.4% Monocytes (%) (Auto) 7.1% Eosinophils (%) (Auto) 1.5% Basophils (%) (Auto) 0.5% Absolute Immature Granulocyte (auto 0.02T/MM3 Absolute Neutrophils (auto) 4.3T/MM3 Absolute Lymphocytes (auto) 1.8T/MM3 Absolute Monocytes (auto) 0.5T/MM3 Absolute Eosinophils (auto) 0.1T/MM3 Absolute Basophils (auto) 0.0T/MM3 Urine Collection Type Cleancatch-midstream Urine Color Yellow Urine Turbidity Clear Urine pH 5.5 Urine Specific K[place]aid >=1.030 Urine Protein Negative Urine Glucose (UA) Negative Urine Ketones Negative Urine Blood Negative Urine Nitrite Negative Urine Bilirubin Negative Urine Urobilinogen 0.2EU/DL Urine Leukocyte Esterase Negative Urinalysis Comment Microscopic not ind. Turbidity < 20 Sodium Level 140MEQ/L Potassium Level 5.1MEQ/L Chloride Level 110MEQ/L Carbon Dioxide Level 26MEQ/L Anion Gap 4MEQ/L Blood Urea Nitrogen 11.0MG/DL Creatinine 0.7MG/DL Glomerular Filtration Rate Calc 128 BUN/Creatinine Ratio 16RATIO Glucose Level 89MG/DL Calculated Osmolality 267MOSM/KG Calcium Level 9.1MG/DL Icterus Index < 2 Chemistry Specimen Hemolysis 137 Medications Current ED Medications Sodium Chloride (Normal Saline IV) 1,000 ml @ 1,000 mls/hr Q1H ONCE IV Last administered on 10/16/16t 20:07; Start 10/16/16 at 20:00; Stop 10/16/16 at 20:59 ; Status DC Ketorolac Tromethamine (Toradol) 30 mg O ONCE IV Last administered on t 20:08; Start 10/16/16 at 20:00; Stop 10/16/16 at 20:01; Status DC Progress Progress CT scan does not show a kidney stone. CBC, BMP, and UA today are unremarkable. K +-5.1 but specimen was hemolyzed. Will go ahead and let him go home with Rx for Naproxen. If not improving at all then follow up with primary care provider. CT CT : Reason for Exam: Flank pain CT: Renal no contrast Interpretation: Normal ROD STANLEY APRN Oct 16, 2016 19:55
[2016-10-16] MEDS ORDERED: KETOROLAC 30mg/ml INJECTION IV ONE (20:00)
[2016-10-16] MEDS ORDERED: NORMAL SALINE 1,000 ML IV ONE (20:00)
[2016-10-16 20:10] LABS: BLOOD, URINE NEGATIVE (NEGATIVE); COLOR,URINE YELLOW (YELLOW); LEUKOCYTE ESTERASE ,URINE NEGATIVE (NEGATIVE); NITRITE,URINE NEGATIVE (NEGATIVE); UROBILINOGEN,URINE 0.2 EU/DL (NORMAL)
[2016-10-16 20:11] LABS: BASOPHILS % (AUTO) 0.5 % (0-2); EOSINOPHILS # (AUTO) 0.1 T/MM3 (0-0.5); EOSINOPHILS % (AUTO) 1.5 % (0-4); HGB - HEMOGLOBIN 15.5 GM/DL (13.5-17.5); IMMATURE GRANULOCYTE # (AUTO) 0.02 T/MM3 (0.00-0.03); IMMATURE GRANULOCYTE % (AUTO) 0.3 % (0.0-0.5); LYMPHOCYTES # (AUTO) 1.8 T/MM3 (1-4.8); LYMPHOCYTES % (AUTO) 26.4 % (23-45); MEAN CORPUSCULAR HGB 29.2 UUG (26-34); MEAN CORPUSCULAR HGB CONC(MCHC 34.4 GM/DL (31-37); MEAN CORPUSCULAR VOLUME 84.7 UM3 (80-100); MEAN PLATELET VOLUME 10.7 UM3 (9.4-12.4); MONOCYTES # (AUTO) 0.5 T/MM3 (0-0.8); MONOCYTES % (AUTO) 7.1 % (0-9.0); NEUTROPHILS #(AUTO)-ABSOLUTE 4.3 T/MM3 (1.8-7.7); NEUTROPHILS % (AUTO) 64.2 % (33-66); RED BLOOD COUNT 5.31 M/MM3 (4.50-5.90); WBC - WHITE BLOOD COUNT 6.6 T/MM3 (4.5-11.0)
[2016-10-16 20:19] LABS: POTASSIUM 5.1 MEQ/L (3.6-5)
[2016-10-16 20:21] LABS: ANION GAP 4 MEQ/L (5-15); BUN/CREATININE RATIO 16 RATIO (6-26); CALCIUM 9.1 MG/DL (8.4-10.2); CHLORIDE 110 MEQ/L (98-107); CO2 - CARBON DIOXIDE 26 MEQ/L (22-30); CREATININE 0.7 MG/DL (0.8-1.5); GLOMERULAR FILTRATION RATE 128; GLUCOSE 89 MG/DL (75-110); SODIUM 140 MEQ/L (134-144)
--- NOTE | 2016-10-16 20:21 | NUR ---
CT TO CT VIA WHEELCHAIR
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
[2016-10-16] MEDS ORDERED: NAPR500T PO (21:32)
[2016-10-16 22:03] VITALS: BP 118/84; PULSE 50; RESP 12; TEMP 97.9; O2SAT 99
--- NOTE | 2016-10-16 22:03 | NUR ---
DEPART PT IS DISCHARGED AT THIS TIME, INSTURCTIONS ARE REVIEWED AND UNDERSTANDING IS VOICED. PT LEAVES AMBULATORY AT THIS TIME.
--- NOTE | 2016-10-17 08:02 | DI ---
Indication: ITS.REASON: flank pain, history of kidney stones PROCEDURE: CT RENAL W/O CONTRAST: Encounter: Initial Comparison: None Technique: Axial CT images were performed through the abdomen and pelvis without intravenous contrast. Coronal and sagittal two-dimensional reformats. Automated Exposure Control and Iterative Reconstruction dose reducing techniques were utilized. Findings: The lung bases are clear. The unenhanced contours of the liver are unremarkable. Gallbladder is absent. The spleen, pancreas and adrenal glands are normal. The kidneys are normal. No ureteral stones. Bladder, prostate and rectum are normal. No evidence of a bowel obstruction. The appendix is normal. Bone windows are normal. Impression: No acute disease process seen. There is a preliminary report by [employer]. .
== END 2016-10-16 22:03 | disposition home or self-care (01) ==
LOC: ED 19:19
DX: R10.84 Generalized abdominal pain (principal); M54.5 Low back pain; R31.9 Hematuria, unspecified; Z87.442 Personal history of urinary calculi
CPT/HCPCS: 74176; 80048; 81003; 85025; 96361; 96374; 99284; J1885; J7030